=== PATIENT | female | born 1970 | race Two or more races ===

== ENCOUNTER → 2019-07-25 | Outpatient (REF) | payer OTHER ==
[2019-07-25 13:48] LABS: HEPATITIS B SURFACE ANTIGEN NEGATIVE (NEGATIVE); HEPATITIS C VIRUS ABY INDEX < 0.0 INDEX (<0.8)
[2019-07-27 00:06] LABS: CYCLIC CITRULLINATED PEPTIDE 9 units (0-19); HEPATITIS B CORE ANTIBODY IGG Negative (Negative)
== END ==
LOC: M SFHCRHEU 08:36
PROVIDERS: ATTEND Internal Medicine
DX: M05.79 Rheumatoid arthritis with rheumatoid factor of multiple sites without organ or systems involvement (principal)
CPT/HCPCS: 36415; 86200; 86704; 86803; 87340; G0463

== ENCOUNTER → 2019-11-07 | Outpatient (REF) | payer OTHER ==
[2019-11-07 15:35] LABS: BASO % 0.6 % (0.0-1.0); EOS # 0.1 10^3/uL (0.0-0.5); EOS % 1.9 % (0.0-3.0); HEMATOCRIT 39.5 % (36.0-47.0); HEMOGLOBIN 12.9 g/dl (12.0-15.5); LYMPH # 1.7 10^3/uL (1.5-5.0); LYMPH % 32.4 % (24.0-44.0); MEAN CORPUSCULAR HEMOGLOBIN 28.4 pg (27.0-33.0); MEAN CORPUSCULAR HGB CONC 32.7 g/dl (32.0-36.5); MEAN CORPUSCULAR VOLUME 86.8 fl (80.0-96.0); MONO # 0.4 10^3/uL (0.0-0.8); MONO % 7.2 % (0.0-5.0); NEUTROPHILS % 57.5 % (36.0-66.0); PLATELET COUNT, AUTOMATED 205 10^3/uL (150-450); RED BLOOD COUNT 4.55 10^6/uL (4.00-5.40); WHITE BLOOD COUNT 5.3 10^3/uL (4.0-10.0)
[2019-11-07 15:42] LABS: ALT/SGPT 29 U/L (12-78); BILIRUBIN,TOTAL 0.6 MG/DL (0.2-1.0); BLOOD UREA NITROGEN 11 MG/DL (7-18); CALCIUM LEVEL 9.5 MG/DL (8.5-10.1); CARBON DIOXIDE LEVEL 22 MEQ/L (21-32); CHLORIDE LEVEL 103 MEQ/L (98-107); CREATININE FOR GFR 0.74 MG/DL (0.55-1.30); GLOMERULAR FILTRATION RATE > 60.0 (>58); GLUCOSE, FASTING 186 MG/DL (70-100); POTASSIUM SERUM 4.3 MEQ/L (3.5-5.1); SODIUM LEVEL 135 MEQ/L (136-145)
[2019-11-07 15:43] LABS: C REACTIVE PROTEIN QUANTITATIV < 0.30 MG/DL (0.00-0.30); TOTAL PROTEIN 7.4 GM/DL (6.4-8.2)
[2019-11-07 15:55] LABS: ERYTHROCYTE SEDIMENTATION RATE 6 mm/hr (0-20)
== END ==
LOC: M SFHCRHEU 10:52
PROVIDERS: ATTEND Internal Medicine
DX: M05.79 Rheumatoid arthritis with rheumatoid factor of multiple sites without organ or systems involvement (principal)

== ENCOUNTER 2019-11-14 05:16 | Emergency (ER) | payer OTHER ==
[~2019-11-14] VITALS: Ht 154.9 cm; Wt 85.5 kg
[2019-11-14] MEDS ORDERED: METF10004 PO (05:28)
[2019-11-14] MEDS ORDERED: LEXA1TAB PO (05:28)
[2019-11-14] MEDS ORDERED: LISI-538 PO (05:28)
[2019-11-14] MEDS ORDERED: HYDR200T3 PO (05:33)
[2019-11-14 05:43] LABS: BASO # 0.1 10^3/uL (0.0-0.2); BASO % 0.7 % (0.0-1.0); EOS # 0.1 10^3/uL (0.0-0.5); EOS % 1.4 % (0.0-3.0); HEMATOCRIT 37.9 % (36.0-47.0); HEMOGLOBIN 12.7 g/dl (12.0-15.5); LYMPH # 2.3 10^3/uL (1.5-5.0); LYMPH % 31.6 % (24.0-44.0); MEAN CORPUSCULAR HEMOGLOBIN 28.9 pg (27.0-33.0); MEAN CORPUSCULAR HGB CONC 33.5 g/dl (32.0-36.5); MEAN CORPUSCULAR VOLUME 86.1 fl (80.0-96.0); MONO # 0.4 10^3/uL (0.0-0.8); MONO % 5.9 % (0.0-5.0); NEUTROPHILS # 4.4 10^3/uL (1.5-8.5); PLATELET COUNT, AUTOMATED 190 10^3/uL (150-450); WHITE BLOOD COUNT 7.3 10^3/uL (4.0-10.0)
[2019-11-14 06:23] LABS: ALBUMIN 3.7 GM/DL (3.2-5.2); ALT/SGPT 23 U/L (12-78); BILIRUBIN,DIRECT 0.1 MG/DL (0.0-0.2); BILIRUBIN,TOTAL 0.3 MG/DL (0.2-1.0); CK-MB VALUE MASS < 1.0 NG/ML (<3.6); CPK CREATINE PHOSPHOKINASE 174 U/L (26-192); LIPASE 121 U/L (73-393); MB/CK RELATIVE INDEX 0.57 (< OR =4); TOTAL PROTEIN 6.9 GM/DL (6.4-8.2); TROPONIN I < 0.02 NG/ML (< 0.10)
[2019-11-14] MEDS ORDERED: NS 1,000 ML IV ONE (06:30)
--- NOTE | 2019-11-14 07:02 | REPVR ---
PROCEDURE INFORMATION: Exam: US Abdomen Limited, Right Upper Quadrant Exam date and time: 11/14/2019 6:53 AM Age: 49 years old Clinical indication: Abdominal pain; Acute; Additional info: Sharp ruq pain TECHNIQUE: Imaging protocol: Real-time ultrasound of the abdomen with image documentation. Examination was focused on the right upper quadrant. COMPARISON: No relevant prior studies available. FINDINGS: Liver: Fatty infiltration of the liver. Gallbladder: Cholelithiasis. No gallbladder wall edema or pericholecystic fluid. Assessment of a sonographic Portillo sign was not reported by the scanning technologist. Common bile duct: Normal caliber of the incompletely visualized common bile duct measuring 4 mm in diameter. Pancreas: Obscuration of the pancreas by bowel gas. Right kidney: Normal right renal morphology. No hydronephrosis. IMPRESSION: Cholelithiasis and fatty infiltration of the liver. Electronically signed by: Helio Cornejo On 11/14/2019 07:02:00 AM
[2019-11-14 07:15] VITALS: BP 112/66
--- NOTE | 2019-11-14 16:44 | ECGEPIP ---
[facility] - ED Test Date: 2019-11-14 Pat Name: SEE PERDUE Department: Room: - Gender: Female Facility Service Manager: : 1970 Requested By: NICK Cooney Order Number: [id number] Reading MD: Eunice Nash Measurements Intervals [place] Rate: 66 P: 56 GA: 160 QRS: 42 QRSD: 85 T: 32 QT: 422 QTc: 445 Interpretive Statements SINUS RHYTHM LOW QRS VOLTAGE IN PRECORDIAL LEADS NSTTW abnormalities NO PRIOR Electronically Signed on 11-14-2019 16:44:50 EDT by Eunice Nash
== END 2019-11-14 07:45 | disposition home or self-care (01) ==
LOC: M ED 05:16
DX: K80.70 Calculus of gallbladder and bile duct without cholecystitis without obstruction (principal); E11.9 Type 2 diabetes mellitus without complications; I10 Essential (primary) hypertension; K21.9 Gastro-esophageal reflux disease without esophagitis; Z79.899 Other long term (current) drug therapy; Z79.84 Long term (current) use of oral hypoglycemic drugs; Z88.0 Allergy status to penicillin; Z91.041 Radiographic dye allergy status

== ENCOUNTER 2019-12-06 09:33 | Day surgery (SDC) | payer OTHER ==
[~2019-12-06] VITALS: Ht 154.9 cm; Wt 83.9 kg
[~2019-12-06 09:33] MED LIST: HYDR200T3 PO; LEXA1TAB PO; LIDOCAINE 1% MDV 20ML VIAL SQ PRN; LISI-538 PO; LR 1,000 ML IV ONE; LevoFLOXacin IV 500 MG in IV 1 EA IV ONE; METF10004 PO
[2019-12-06] MEDS ORDERED: ROCURONIUM BROMIDE 50 MG/5 ML VIAL As Ordered ONE (10:28)
[2019-12-06] MEDS ORDERED: LIDOCAINE 2% 100MG/5ML SDV (FOR ANES.) As Ordered ONE (10:28)
[2019-12-06] MEDS ORDERED: propofoL 200 MG/20 ML VIAL As Ordered ONE (10:29)
[2019-12-06] MEDS ORDERED: fentaNYL 100 MCG/2 ML INJECTION (J3010) As Ordered ONE (10:29)
[2019-12-06] MEDS ORDERED: METOCLOPRAMIDE INJ 10MG/2ML VIAL (J2765 PER 1) As Ordered ONE (10:29)
[2019-12-06] MEDS ORDERED: ONDANSETRON 4MG/2ML VIAL As Ordered ONE (10:29)
[2019-12-06] MEDS ORDERED: MIDAZOLAM INJ 2MG/2ML VIAL (J2250 PER 1MG) As Ordered ONE (10:29)
[2019-12-06] MEDS ORDERED: SCOPOLAMINE 1MG TRANSDERMAL PATCH TOP ONE (10:45)
[2019-12-06] MEDS ORDERED: BUPIVACAINE/EPIN 0.25% 30 ML VIAL As Ordered ONE (11:03)
[2019-12-06] MEDS ORDERED: ONDANSETRON 4MG/2ML VIAL IV PRN ×2 (13:00)
[2019-12-06] MEDS ORDERED: oxyCODONE 5MG TAB PO PRN (13:00)
[2019-12-06] MEDS ORDERED: LR 1,000 ML IV SCH ×2 (13:00)
[2019-12-06] MEDS ORDERED: NORCO, ANEXSIA 5/325MG TABLET (HYDROcodone/ACETAMINOPHEN) PO PRN (13:00)
[2019-12-06] MEDS ORDERED: fentaNYL 100 MCG/2 ML INJECTION (J3010) IV PRN (13:00)
--- NOTE | 2019-12-06 14:27 | RO ---
DATE OF PROCEDURE: 12/06/2019 PREOPERATIVE DIAGNOSIS: History of cholecystitis/symptomatic gallstones. POSTOPERATIVE DIAGNOSIS: History of cholecystitis/symptomatic gallstones. PROCEDURE: Laparoscopic cholecystectomy. SURGEON: Dr. David Liu ROOTER OPERATOR: ANESTHESIA: General endotracheal anesthesia. ESTIMATED BLOOD LOSS: Minimal. FLUIDS: Crystalloid. BRIEF PROCEDURE SUMMARY: The patient was brought to the operating room and was given general anesthesia. After adequate anesthesia and preoperative antibiotics were given, the patient was prepped and draped in the usual sterile fashion. Next, a supraumbilical incision was made with skin knife. Blunt dissection was carried down to fascia. Veress needle placed into the abdominal cavity and insufflated to 15 mm of pressure. A dilating 10 mm trocar was placed at this time and under direct visualization an epigastric and two lateral trocars were placed. The gallbladder was grasped, retracted superiorly and the neck of the gallbladder was cleared of peritoneum with hook cautery. The patient had a relatively redundant liver bed and a little difficulty in dissection down at the neck of the gallbladder, but eventually after making a good window behind the neck of the gallbladder and the cystic artery, the cystic artery was followed up onto the gallbladder itself. It was a relatively small branch and this was clipped on the gallbladder and then mobilized down towards the cystic duct itself. What could be seen was a larger artery paralleling the neck of the gallbladder and diving into the liver itself. This was visualized and knowing its presence we continued dissection of the neck of the gallbladder. Laterally, it was much easier to mobilize this nicely to a taper down to the cystic duct and the cystic duct was clipped proximally and distally and transected after seeing a good window behind the neck of the gallbladder. The gallbladder was taken from the gallbladder bed using electrocautery, placed in an EndoCatch bag and brought out through the umbilicus. The right upper quadrant was copiously irrigated till clear. All trocars were removed under direct visualization. #0 Vicryl was used to close the fascia at the umbilicus and all incisions were closed with #4-0 Vicryl. Steri-Strips and a dry sterile dressing was applied. The patient was awakened, extubated and brought to the recovery room awake, alert and hemodynamically stable.
[2019-12-06 14:40] VITALS: BP 135/84
== END 2019-12-06 15:00 | disposition home or self-care (01) ==
LOC: M SDC 09:33
PROVIDERS: ATTEND Surgery
CPT/HCPCS: 47562; 88304; J1956; J2250; J2405; J2765; J3010